=== PATIENT | female | born 1990 | race Caucasian/White ===

== ENCOUNTER → 2018-10-02 | Outpatient (CLI) | payer OTHER ==
--- NOTE | 2018-10-02 10:43 | Diagnostic Imaging Report ---
PROCEDURE: US OB SINGLE FETUS <14 WKS. TECHNIQUE: Multiple Real-time grayscale images were obtained over the gravid uterus in various projections. INDICATION: Uncertain dates. COMPARISON: There are no prior studies available for comparison. FINDINGS: There is a gestational sac within the uterus containing a single live fetus. heart motion was noted and a rate of 175 BPM was recorded. The crown/rump length suggests an estimated gestational age of 9 weeks 5 days plus/minus 1 week. There are no obvious abnormalities identified. The amniotic fluid volume is within normal limits. At this time, it is not certain where the placenta will develop. Both ovaries are identified. Each ovary does contain a few subcentimeter follicles. There is also a 1.1 x 0.5 cm cyst associated with the right ovary. There is no solid pelvic mass or free fluid collection evident. IMPRESSION: 1. There is a single live intrauterine of approximately 9 weeks 5 days gestation plus/minus 1 week. The EDC is 05/02/2019. 2. There are no obvious abnormalities identified. If a more sensitive evaluation of the anatomy is desired, then a followup exam in 10-12 weeks should be obtained. 3. There is no pelvic mass or free fluid collection. There is a 1.1 x 0.5 cm benign-appearing cyst associated with the right ovary. Dictated by: Dictated on workstation # [id number]
== END ==
LOC: RAD 09:32
PROVIDERS: ATTEND Family Medicine
DX: O34.81 Maternal care for other abnormalities of pelvic organs, first trimester (principal); N83.201 Unspecified ovarian cyst, right side; Z3A.09 9 weeks gestation of pregnancy
CPT/HCPCS: 76801

== ENCOUNTER → 2018-12-04 | Outpatient (CLI) | payer OTHER ==
--- NOTE | 2018-12-04 12:59 | Diagnostic Imaging Report ---
INDICATION: survey. TECHNIQUE: Multiple real-time grayscale images were obtained over the gravid uterus. COMPARISON: 10/02/2018. FINDINGS: There is a single live fetus in a cephalic presentation. heart rate was recorded at 155 beats per minute. The placenta is fundal. The amniotic fluid volume is normal. survey demonstrates kidneys, bladder, and stomach to be unremarkable. The brain is unremarkable. There is a four-chamber heart. There is a three-vessel cord with normal insertion. The spine is unremarkable. Biometrical measurements are as follows: Biparietal 4.41 cm, age 19 weeks 3 days. Head circumference 15.97 cm, age 18 weeks 6 days. Abdominal circumference 13.23 cm, age 18 weeks 6 days. Femur length 3.05 cm, age 19 weeks 4 days. Sonographic estimate age: 19 weeks 2 days. Sonographic estimated date of delivery: 04/28/2019. Estimated Weight: 271 gm (+/- 40 gm). LMP percentile: 66%. heart rate: 155 beats per minute. number: 1 of 1. IMPRESSION: Single live IUP at 19 weeks 2 days gestational age. This demonstrates normal interval growth when compared with prior exam from 10/02/2018. No complicating features are detected. Dictated by: Dictated on workstation # [id number]
== END ==
LOC: RAD 11:32
PROVIDERS: ATTEND Family Medicine
DX: Z36.89 Encounter for other specified antenatal screening (principal); Z3A.19 19 weeks gestation of pregnancy
CPT/HCPCS: 76805

== ENCOUNTER 2019-04-08 19:12 | Outpatient (CLI) | payer OTHER ==
[~2019-04-08] VITALS: Ht 154.9 cm; Wt 82.1 kg
--- NOTE | 2019-04-08 19:15 | NUR ---
BRIANNE KO presented to unit via wheelchair from ED, accompanied by , with c/o CONTRACTIONS. BRIANNE KO weighed, gowned, voided, and to bed. EFHM and TOCO applied, VS taken. BRIANNE KO oriented to bed controls, call light, TV, heat, and A/C controls.
[2019-04-08 19:35] VITALS: BP 135/97
[2019-04-08 19:54] LABS: BILIRUBIN,URINE NEGATIVE (NEGATIVE); CLARITY,URINE CLEAR; COLOR,URINE YELLOW; GLUCOSE, URINE (UA) NEGATIVE (NEGATIVE); KETONES,URINE NEGATIVE (NEGATIVE); LEUKOCYTE ESTERASE ,URINE 2+ (NEGATIVE); NITRITE,URINE NEGATIVE (NEGATIVE); PH,URINE 7 (5-9); PROTEIN,URINE NEGATIVE (NEGATIVE); UROBILINOGEN,URINE NORMAL (NORMAL)
[2019-04-08 20:10] LABS: BACTERIA,URINE FEW /HPF
[2019-04-08] MEDS ORDERED: HYDROcodone/APAP 10 MG/325 MG (LORTAB) TAB PO ONE ×2 (20:23→20:30)
[2019-04-08] MEDS ORDERED: hydrOXYzine (VISTARIL/ATARAX) 25 MG capsule/tablet ONE (21:05)
[2019-04-08] MEDS ORDERED: hydrOXYzine (VISTARIL/ATARAX) 25 MG capsule/tablet PO ONE (21:15)
--- NOTE | 2019-04-08 21:32 | NUR ---
Discharge instructions discussed with pt. Pt denies any questions. Signature sheet signed, placed on chart.
--- NOTE | 2019-04-08 21:45 | NUR ---
Pt to private vehicle with s.o. and this RN at side. Pt ambulating while holding wheelchair. Pt assisted into private vehicle. Encouraged to call if having any concerns. Pt verbalized understanding.
== END 2019-04-08 21:45 | disposition home or self-care (01) ==
LOC: WSo 19:12 → LDRP 19:12 → WSo 21:45
PROVIDERS: ATTEND Family Medicine
DX: O99.89 Other specified diseases and conditions complicating pregnancy, childbirth and the puerperium (principal); R07.81 Pleurodynia; Z3A.36 36 weeks gestation of pregnancy
CPT/HCPCS: 81000; 87088; 99213

== ENCOUNTER 2019-05-01 06:02 | Inpatient (IN) | payer OTHER ==
[~2019-05-01] VITALS: Ht 154.9 cm; Wt 84.9 kg
[2019-05-01] VITALS (65 sets, daily range): BP systolic 98–167; BP diastolic 51–90
--- NOTE | 2019-05-01 06:03 | NUR ---
BRIANNE KO presented to unit via ambulation from ED, accompanied by , with POC for INDUCTION. BRIANNE KO weighed, gowned, voided, and to bed. EFHM and TOCO applied, VS taken. BRIANNE KO oriented to bed controls, call light, TV, heat, and A/C controls.
[2019-05-01] MEDS ORDERED: MINERAL OIL CONCENTRATE 99.9% 15 ML UDC TOP PRN (06:15)
[2019-05-01] MEDS: D5 LR IV SOLUTION 1,000 ML IV SCH ×2 (06:33→14:29)
[2019-05-01 06:36] LABS: BASOPHILS % (AUTO) 0 % (0-10); EOSINOPHILS # (AUTO) 0.3 10^3/uL (0.0-0.3); EOSINOPHILS % (AUTO) 2 % (0-10); HEMATOCRIT 35 % (35-52); HEMOGLOBIN 11.6 G/DL (11.5-16.0); LYMPHOCYTES # (AUTO) 1.8 X 10^3 (1.0-4.0); LYMPHOCYTES % (AUTO) 17 % (12-44); MEAN CORPUSCULAR HEMOGLOBIN 29 PG (25-34); MEAN CORPUSCULAR HGB CONC 33 G/DL (32-36); MEAN CORPUSCULAR VOLUME 86 FL (80-99); MEAN PLATELET VOLUME 10.5 FL (7.4-10.4); MONOCYTES # (AUTO) 0.8 X 10^3 (0.0-1.0); MONOCYTES % (AUTO) 7 % (0-12); NEUTROPHILS # (AUTO) 7.9 X 10^3 (1.8-7.8); NEUTROPHILS % (AUTO) 74 % (42-75); PLATELET COUNT 264 10^3/uL (130-400); RED CELL DISTRIBUTION WIDTH 13.8 % (10.0-14.5); WHITE BLOOD COUNT 10.7 10^3/uL (4.3-11.0)
[2019-05-01 06:38] LABS: BILIRUBIN,URINE NEGATIVE (NEGATIVE); CLARITY,URINE CLEAR; COLOR,URINE YELLOW; GLUCOSE, URINE (UA) NEGATIVE (NEGATIVE); KETONES,URINE NEGATIVE (NEGATIVE); LEUKOCYTE ESTERASE ,URINE NEGATIVE (NEGATIVE); NITRITE,URINE NEGATIVE (NEGATIVE); PH,URINE 6.5 (5-9); PROTEIN,URINE NEGATIVE (NEGATIVE); UROBILINOGEN,URINE NORMAL (NORMAL)
[2019-05-01 06:50] LABS: BACTERIA,URINE TRACE /HPF
--- NOTE | 2019-05-01 07:09 | History & Physical-OB ---
OB - Chief Complaint & HPI Date/Time Date of Admission: Date of Admission: May 01, 2019 at 06:02 Date seen by a Provider: May 01, 2019 Time Seen by a Provider: 07:05 Chief Complaint/History OB-Reason for Admission/Chief: Induction of Labor Hx : 1 Hx Para: 0 Expected Date of Delivery: May 02, 2019 Gestational Age in Weeks: 39 Gestational Age in Days: 6 Admission Nurse Assessment Rev: Yes History of Labs GBS negative Allergies and Home Medications Allergies Coded Allergies: No Known Drug Allergies (Unverified , 04/08/19) Home Medications No Active Prescriptions or Reported Meds Patient Home Medication List Home Medication List Reviewed: Yes OB - History Hx of Present Care: Yes Ultrasounds: Normal mid trimester US Obstetrical Complications: None Medical Complications: None Patient Past Medical History no chronic medical problems Social History/Family History Alcohol Use: Denies Use Recreational Drug Use: No OB - Admission Exam Physical Exam Vitals: Vital Signs 05/01/19 06:33 Temp 97.0 Pulse 97 Resp 18 B/P (MAP) 123/74 (90) O2 Delivery Room Air HEENT: Moist Membranes Heart: Rhythm Normal Lungs: Clear Abdomen: Gravid Extremities: Normal Cervical Dilatation: 2cm Effacement: 50% Station: -3 Membranes: Intact Heart Rate: 140's Accelerations: Accelerations Present Short Term Variability: Present Sanitary Chemist Variability: Minimal (3-5) Contractions on Admission: 6-10 Minutes Apart Intensity: Mild Rahman Scoring Tool (Modified) Dilation (cm): 1-2cm (1) Effacement (%): 31-51% (1) Descent/Station: -3 (0) Cervix Consistency: Medium(1) Cervix Position: Middle/Mid-Position (1) Rahman Score: 4 Labs Laboratory Tests Test 05/01/19 06:10 05/01/19 06:20 Range/Units Urine Color YELLOW Urine Clarity CLEAR Urine pH 6.5 5-9 Urine Specific [place] 1.020 1.016-1.022 Urine Protein NEGATIVE NEGATIVE Urine Glucose (UA) NEGATIVE NEGATIVE Urine Ketones NEGATIVE NEGATIVE Urine Nitrite NEGATIVE NEGATIVE Urine Bilirubin NEGATIVE NEGATIVE Urine Urobilinogen NORMAL NORMAL MG/DL Urine Leukocyte Esterase NEGATIVE NEGATIVE Urine RBC (Auto) NEGATIVE NEGATIVE Urine RBC NONE /HPF Urine WBC NONE /HPF Urine Squamous Epithelial Cells 2-5 /HPF Urine Crystals NONE /LPF Urine Bacteria TRACE /HPF Urine Casts NONE /LPF Urine Mucus NEGATIVE /LPF Urine Culture Indicated NO White Blood Count 10.7 4.3-11.0 10^3/uL Red Blood Count 4.05 L 4.35-5.85 10^6/uL Hemoglobin 11.6 11.5-16.0 G/DL Hematocrit 35 35-52 % Mean Corpuscular Volume 86 80-99 FL Mean Corpuscular Hemoglobin 29 25-34 PG Mean Corpuscular Hemoglobin Concent 33 32-36 G/DL Red Cell Distribution Width 13.8 10.0-14.5 % Platelet Count 264 130-400 10^3/uL Mean Platelet Volume 10.5 H 7.4-10.4 FL Neutrophils (%) (Auto) 74 42-75 % Lymphocytes (%) (Auto) 17 12-44 % Monocytes (%) (Auto) 7 0-12 % Eosinophils (%) (Auto) 2 0-10 % Basophils (%) (Auto) 0 0-10 % Neutrophils # (Auto) 7.9 H 1.8-7.8 X 10^3 Lymphocytes # (Auto) 1.8 1.0-4.0 X 10^3 Monocytes # (Auto) 0.8 0.0-1.0 X 10^3 Eosinophils # (Auto) 0.3 0.0-0.3 10^3/uL Basophils # (Auto) 0.0 0.0-0.1 10^3/uL OB - Assessment/Plan/Diagnosis Assessment Assessment: induction of labor Admission Dx 1. IUP at term [id number] Admission Status: Inpatient Order (span 2 midnights) Reason for Inpatient Admission: Induction of labor Plan Plan: Expectant Management Induction Method: AROM Other Plan -epidural if so desired -pitocin as needed HOOD MONTANO MD May 01, 2019 07:09
[2019-05-01] MEDS ORDERED: OXYTOCIN/NORMAL SALINE 500 ML IV SCH (07:29)
--- NOTE | 2019-05-01 08:56 | NUR ---
Initial contact with a close family friend who was looking for the waiting room on women's floor. I escorted him there, where we met the pt's father in law. The two men said they have known each other for many years, and have a good friendship. I congratulated them on the anticipated , told them I would pray for Nataliia and the baby, and invited them to approach the nurse's desk if they had any questions. Both said they were content in the waiting area, and that they appreciated the hospitality shown to them.
[2019-05-01] MEDS ORDERED: SUFENTA 0.6MCG/ML BUPIVA 0.125 100 ML ONE (09:26)
--- NOTE | 2019-05-01 09:45 | NUR ---
Anesthesia notified of epidural request.
[2019-05-01] MEDS ORDERED: fentaNYL INJECTION 100 MCG/2 ML AMP ONE ×2 (10:23→20:13)
[2019-05-01] MEDS: EPIDURAL (SUFENTA 0.6MCG/ML BUPIVA 0.125%) 100 ML BAG EPI PRN ×2 (10:35→19:38)
[2019-05-01] MEDS ORDERED: LACTATED RINGERS 1,000 ML IV ONE (10:41)
[2019-05-01] MEDS ORDERED: ONDANSETRON 4 MG/2 ML (SDV) Z0FRAN IV PRN ×2 (10:45→21:45)
[2019-05-01] MEDS ORDERED: METOCLOPRAMIDE INJ 10 MG/2 ML (REGLAN) IV PRN (10:45)
[2019-05-01] MEDS ORDERED: diphenhydrAMINE 50 MG/ML INJ (BENADRYL) IV PRN ×2 (10:45→21:45)
[2019-05-01] MEDS ORDERED: NALOXONE 0.4 MG/ML 1 ML (NARCAN) VIAL IV PRN ×3 (10:45→21:45)
[2019-05-01] MEDS ORDERED: CATHETER FLUSH 10 ML SYR IV SCH ×2 (14:00→22:00)
[2019-05-01] MEDS ORDERED: MEPIVACAINE (CARBOCAINE) 2% 50 ML VIAL ONE (16:24)
[2019-05-01] MEDS ORDERED: TERBUTALINE INJ 1 MG/ML (BRETHINE) AMP ONE ×2 (19:56→20:27)
[2019-05-01] MEDS ORDERED: FAMOTIDINE 20MG/2ML IV (PEPCID) ONE (20:00)
[2019-05-01] MEDS ORDERED: CITRIC ACID/SOB CIT (BICITRA) 30 ML UDC ONE (20:00)
[2019-05-01] MEDS ORDERED: ceFAZolin 2 GM/50 ML NS 50 ML ONE (20:00)
--- NOTE | 2019-05-01 20:17 | Progress Note ---
Subjective Date Seen by a Provider: May 01, 2019 Time Seen by a Provider: 20:00 Subjective/Events-last exam Patient in labor with Pitocin at 26 mU/m. She has dilated to completion. She has been pushing for 3-1/2 hours. monitoring strip is very reactive. Objective Exam Vital Signs Date Time Temp Pulse Resp B/P (MAP) Pulse Ox O2 Delivery O2 Flow Rate FiO2 05/01/19 18:52 97 18 136/66 (89) Room Air 05/01/19 18:37 117 18 107/56 (73) Room Air 05/01/19 18:22 97 18 139/63 (88) Room Air 05/01/19 18:07 99.9 90 18 137/88 (104) Room Air 05/01/19 17:37 88 18 126/56 (79) Room Air 05/01/19 17:22 90 18 127/60 (82) Room Air 05/01/19 17:08 93 18 125/61 (82) Room Air 05/01/19 16:52 130 18 167/90 (115) Room Air 05/01/19 16:37 96 18 143/75 (97) Room Air 05/01/19 16:23 87 18 107/53 (71) Room Air 05/01/19 16:07 96 18 98/53 (68) Room Air 05/01/19 15:52 97.9 90 18 110/64 (79) Room Air 05/01/19 15:37 93 18 118/60 (79) Room Air 05/01/19 15:21 102 18 119/63 (81) Room Air 05/01/19 15:06 96 18 111/61 (78) Room Air 05/01/19 14:53 86 18 115/59 (77) Room Air 05/01/19 14:37 90 18 110/64 (79) Room Air 05/01/19 14:24 97.5 84 18 121/63 (82) Room Air 05/01/19 14:08 84 18 134/63 (86) Room Air 05/01/19 13:53 87 18 133/62 (85) Room Air 05/01/19 13:38 81 18 151/67 (95) Room Air 05/01/19 13:21 79 18 105/54 (71) Room Air 05/01/19 13:08 86 18 114/59 (77) Room Air 05/01/19 12:50 82 18 119/60 (79) Room Air 05/01/19 12:35 97 18 124/78 (93) 98 Room Air 05/01/19 12:20 82 18 115/56 (75) 98 Room Air 05/01/19 12:05 86 18 110/65 (80) 98 Room Air 05/01/19 11:50 97.1 83 18 116/67 (83) 98 Room Air 05/01/19 11:35 93 18 120/60 (80) 98 Room Air 05/01/19 11:20 100 18 114/67 (83) 98 Room Air 05/01/19 11:05 89 18 118/65 (82) 99 Room Air 05/01/19 11:01 93 18 116/65 (82) 98 Room Air 05/01/19 10:58 88 18 112/60 (77) Room Air 05/01/19 10:55 94 18 118/72 (87) 99 Room Air 05/01/19 10:52 88 18 120/57 (78) 99 Room Air 05/01/19 10:49 86 18 123/85 (98) 99 Room Air 05/01/19 10:46 93 18 119/62 (81) 99 Room Air 05/01/19 10:43 92 18 117/60 (79) 99 Room Air 05/01/19 10:40 95 18 118/63 (81) 99 Room Air 05/01/19 10:37 104 18 125/62 (83) 98 Room Air 05/01/19 10:34 109 18 122/60 (80) 98 Room Air 05/01/19 10:31 95 18 126/64 (84) 98 Room Air 05/01/19 10:26 97.2 106 18 125/64 (84) 99 Room Air 05/01/19 10:23 105 18 124/79 (94) 99 Room Air 05/01/19 10:16 90 18 127/73 (91) 100 Room Air 05/01/19 10:13 88 18 130/71 (90) 100 Room Air 05/01/19 09:55 78 18 124/83 (97) Room Air 05/01/19 09:40 95 18 136/86 (103) Room Air 05/01/19 09:25 81 18 128/78 (95) Room Air 05/01/19 09:10 88 18 133/71 (91) Room Air 05/01/19 08:55 82 18 131/77 (95) Room Air 05/01/19 08:40 81 18 118/72 (87) Room Air 05/01/19 08:25 90 18 121/65 (83) Room Air 05/01/19 08:10 83 18 109/72 (84) Room Air 05/01/19 07:55 88 18 116/78 (91) Room Air 05/01/19 07:30 96.4 92 18 131/81 (98) Room Air 05/01/19 06:33 97.0 97 18 123/74 (90) Room Air Capillary Refill : General Appearance: Anxious Other comments Cervix completely dilated. Position of fetuses head appears to be right occiput posterior. Results Lab Laboratory Tests 05/01/19 06:10: Urine Color YELLOW, Urine Clarity CLEAR, Urine pH 6.5, Urine Specific [place] 1.020, Urine Protein NEGATIVE, Urine Glucose (UA) NEGATIVE, Urine Ketones NEGATIVE, Urine Nitrite NEGATIVE, Urine Bilirubin NEGATIVE, Urine Urobilinogen NORMAL, Urine Leukocyte Esterase NEGATIVE, Urine RBC (Auto) NEGATIVE, Urine RBC NONE, Urine WBC NONE, Urine Squamous Epithelial Cells 2-5, Urine Crystals NONE, Urine Bacteria TRACE, Urine Casts NONE, Urine Mucus NEGATIVE, Urine Culture Indicated NO 05/01/19 06:20: White Blood Count 10.7, Red Blood Count 4.05L, Hemoglobin 11.6, Hematocrit 35, Mean Corpuscular Volume 86, Mean Corpuscular Hemoglobin 29, Mean Corpuscular Hemoglobin Concent 33, Red Cell Distribution Width 13.8, Platelet Count 264, Mean Platelet Volume 10.5H, Neutrophils (%) (Auto) 74, Lymphocytes (%) (Auto) 17, Monocytes (%) (Auto) 7, Eosinophils (%) (Auto) 2, Basophils (%) (Auto) 0, Neutrophils # (Auto) 7.9H, Lymphocytes # (Auto) 1.8, Monocytes # (Auto) 0.8, Eosinophils # (Auto) 0.3, Basophils # (Auto) 0.0 Assessment/Plan Assessment/Plan Assess & Plan/Chief Complaint 1. Intrauterine at 39 weeks 5 days gestation 2. Cephalopelvic disproportion -Mother was given 3 hours of pushing. Various positions were tried to bring head further down into the birthing canal. monitoring remained reactive throughout the entire course of pushing. There was one attempt with vacuum-assisted suction. The vacuum-assisted failed and at this point surgery crew was notified and Dr. Mcnulty notified. Patient and both agree to proceed with section. Clinical Quality Measures DVT/VTE Risk/Contraindication: Risk Factor Score Per Nursin RFS Level Per Nursing on Admit: 1=Low/No VTE PPX HOOD MONTANO MD May 01, 2019 20:17
[2019-05-01] MEDS ORDERED: MEASLES,MUMPS,RUBELLA 1 EA INJ SC SCH (20:45)
[2019-05-01] MEDS ORDERED: ONDANSETRON 4 MG/2 ML (SDV) Z0FRAN IVP PRN (20:45)
[2019-05-01] MEDS ORDERED: TETANUS,DIPTH,PERTUSS P/F (BOOSTRIX) 0.5 ML VIAL IM SCH (20:45)
--- NOTE | 2019-05-01 20:47 | Discharge Inst-Women's Service ---
Discharge Inst-Women's Serv Depart Medication/Instructions New, Converted or Re-Newed RX: RX on Chart Final Diagnosis POD 2 PLTCS Acute blood loss anemia Problems Reviewed?: Yes Consults/Follow Up Additional Follow Up: Yes Activity Activity: Activity as Tolerated Driving Instructions: No Driving for 1 Week NO SMOKING: NO SMOKING Nothing Inside Vagina: No Douching, No [place], No Tampons Diet Discharge Diet: No Restrictions Symptoms to Report to : Bleeding Excessive, Pain Increased, Fever Over 101 Degrees F, Vaginal Bleeding Increase, Questions/Concerns For Any Problems or Questions: Contact Your Physician Skin/Wound Care Infection Signs and Symptoms: Increased Redness, Foul Odor of Wound, Increased Drainage, Skin Itchy or Has a Rash, Increased Swelling, Temperature Above 101 F Operative Area Clean and Dry: Keep Incision Clean/Dry Stitches/Kaya/Dermabond: Dermabond, Care of Stitches Bathing Instructions: HEAVENLY Gonzalez DO May 01, 2019 20:47
[2019-05-01] MEDS ORDERED: HYDR-4226 PO (20:48)
[2019-05-01] MEDS ORDERED: DOCU-143 PO (20:48)
[2019-05-01] MEDS ORDERED: IBUP-844 PO (20:48)
[2019-05-01] MEDS ORDERED: BUPIVACAINE 0.5% 30 ML (SENSORCAINE) VIAL ONE (21:15)
[2019-05-01] MEDS ORDERED: LIDOCAINE PF 2% 5 ML (XYLOCAINE) VIAL ONE ×2 (21:15→21:19)
[2019-05-01] MEDS ORDERED: ONDANSETRON 4 MG/2 ML (SDV) Z0FRAN ONE (21:15)
[2019-05-01] MEDS ORDERED: PHENYLEPHRINE 100 MCG/ML 10 ML (ANESTHESIA) SYR ONE (21:17)
[2019-05-01] MEDS: OXYTOCIN/NORMAL SALINE 500 ML IV SCH (23:10)
--- NOTE | 2019-05-01 23:10 | NUR ---
Pt transferred to room 307 per bed accompanied by this rn, so, and . Pt oriented to room, ice water given. Pitocin converted to pump tubing. SCD's on, pump running. Ice pack given for perineum. call light in reach. food offered. will monitor closely.
--- NOTE | 2019-05-01 23:15 | NUR ---
Report given to jyoti schaeffer rn.
[2019-05-01] MEDS: KETOROLAC 30 MG/ML VIAL IV SCH (23:23)
[2019-05-02] MEDS ORDERED: METOCLOPRAMIDE INJ 10 MG/2 ML (REGLAN) IV ONE
[2019-05-02] MEDS ORDERED: TERBUTALINE INJ 1 MG/ML (BRETHINE) AMP SC ONE ×2
[2019-05-02] MEDS ORDERED: FAMOTIDINE 20MG/2ML IV (PEPCID) IV ONE
[2019-05-02] MEDS ORDERED: CITRIC ACID/SOB CIT (BICITRA) 30 ML UDC PO ONE
--- NOTE | 2019-05-02 00:30 | NUR ---
Pt refused IS regimen.
--- NOTE | 2019-05-02 04:01 | OPERATIVE REPORT ---
DATE OF SERVICE: 05/01/2019 PREOPERATIVE DIAGNOSES: 1. A 28-year-old G1, P0 at 39 weeks and 6 days gestation. 2. Cephalopelvic disproportion. 3. Persistent tachycardia. POSTOPERATIVE DIAGNOSES: 1. A 28-year-old G1, P0 at 39 weeks and 6 days gestation. 2. Cephalopelvic disproportion. 3. Persistent tachycardia. 4. Persistent occiput posterior. SURGEON: Vasu Juarez D.O. TOW DRIVER: Vignesh Eric M.D. ANESTHESIA: Spinal. ESTIMATED BLOOD LOSS: 300 mL. URINE OUTPUT: 75 mL, slightly blood tinged at the end of the procedure. FLUIDS: 1650 mL of lactated Ringer's solution. FINDINGS: A live male infant weighing 7 pounds 9 ounces, Apgars of 7 and 8. Grossly normal appearing uterus. Bilateral fallopian tubes and ovaries. SPECIMEN SENT: Placenta. INDICATIONS FOR PROCEDURE: This 28-year-old female was a patient that was admitted for induction by Dr. Eric yesterday morning for Pitocin and artificial rupture of membranes. She progressed to complete at approximately 3 to 4 o'clock this afternoon and she pushed until approximately 7: 45 to 8:00 without any progression in station. Dr. Eric did report to me that he did attempt vacuum extraction, was unsuccessful and requested my services to perform primary for cephalopelvic disproportion. Once I presented bedside, I reviewed with the patient the risk of , which she was well familiar with and have been counseled with Dr. Eric. Consent was obtained in the preoperative area and the patient was then taken to the operating room. OPERATIVE REPORT IN DETAIL: Once in the operating room, spinal analgesia was used to achieve adequate anesthesia as her epidural was not working very well. She was placed in supine position with a leftward tilt, prepped and draped in normal sterile fashion. A timeout was performed. A Pfannenstiel skin incision made with a knife and carried down until the underlying fascia using Bovie cautery. Fascial incision extended laterally using Bovie cautery. Superior aspect of fascial incision was then grasped with Guadalupe clamps, tented up and dissected off the underlying rectus muscles. The inferior aspect of the fascial incision was then grasped with Guadalupe clamps, tented up and dissected off the underlying rectus muscles. Rectus muscles were then dissected down the midline using Valadez scissors, which exposed the peritoneum, which I then entered bluntly and extended using blunt traction. I then placed an Matt ring retractor in the peritoneal incision, which offers excellent lateral sidewall retraction. I identified the lower uterine segment, found to be thinned out and make a low transverse incision to the vesicouterine peritoneum and bluntly dissected off the lower uterine segment. I proceeded with myotomy until membranes were visualized, at which point I extend the uterine incision laterally and superiorly using bandage scissors. Iatrogenic rupture of membranes was performed in the process of doing this. The infant was found in the posterior presentation. With gentle fundal pressure, the 's head is elevated up out of the pelvis into the incision where it is delivered through the incision. The nares and oropharynx were bulb suctioned. A nuchal cord was reduced x1. Anterior and posterior shoulders were delivered. was then brought to the operative field where the cord was doubly clamped and cut and was handed off to Dr. Eric for further attendance. Cord blood was collected, 3-vessel cord with intact placenta was delivered spontaneously thereafter. IV Pitocin was initiated to facilitate uterine contraction. Uterine fundus became firmer with bimanual massage. The uterus was then exteriorized and cleared of endometrial clots and debris. I then proceeded with closing the uterine incision using 0 Vicryl suture in running locked fashion. Second layer of imbricating 0 Monocryl was placed. Excellent hemostasis was noted after doing this. I then placed the uterus back in the pelvis and copiously irrigated the pelvis using normal saline. There was no active bleeding noted from any of my dissection planes. I placed Interceed antiadhesive over my low transverse incision and proceeded with closing the peritoneum after removing the Matt ring retractor. The peritoneum was reapproximated using 3-0 Vicryl suture in running fashion. The rectus muscle reapproximated using 3-0 Vicryl suture in interrupted fashion. The fascia was reapproximated with 0 Vicryl suture in running fashion. The subcutaneous tissue was reapproximated using 3-0 plain in interrupted subcutaneous stitch and skin reapproximated using 4-0 Monocryl running subcuticular. Dermabond was applied to incision. A sterile dressing with adhesive white tape. The patient tolerated the procedure well and was taken to recovery area in stable condition. Lap and sponge counts were correct at the end of the procedure. Instrument counts correct as well. Two grams of Ancef were given preoperatively for infection prophylaxis. Job ID: [id number] DocumentID: [id number] Dictated Date: 05/01/2019 21:46:19 Terrazzo Polisher Helper Date: 05/02/2019 04:01:12 Dictated By: VASU JUAREZ DO
[2019-05-02 04:08] VITALS: BP 93/45
[2019-05-02] MEDS: KETOROLAC 30 MG/ML VIAL IV SCH (05:37)
[2019-05-02] MEDS: METOCLOPRAMIDE 10 MG (REGLAN) TAB PO SCH ×4 (05:37→20:32)
--- NOTE | 2019-05-02 05:46 | NUR ---
Pt up standby assist to bathroom, first void postop, 500ml urine blood mix noted in hat. i/o updated. see int. pt assisted back to bed standby, calf scds reapplied bilat, on and pumping, pt denies needs. Will cont to monitor.
[2019-05-02 06:18] LABS: BASOPHILS % (AUTO) 0 % (0-10); EOSINOPHILS % (AUTO) 0 % (0-10); HEMATOCRIT 29 % (35-52); HEMOGLOBIN 9.5 G/DL (11.5-16.0); LYMPHOCYTES # (AUTO) 1.8 X 10^3 (1.0-4.0); LYMPHOCYTES % (AUTO) 9 % (12-44); MEAN CORPUSCULAR HEMOGLOBIN 29 PG (25-34); MEAN CORPUSCULAR HGB CONC 33 G/DL (32-36); MEAN CORPUSCULAR VOLUME 88 FL (80-99); MEAN PLATELET VOLUME 10.6 FL (7.4-10.4); MONOCYTES # (AUTO) 2.1 X 10^3 (0.0-1.0); MONOCYTES % (AUTO) 11 % (0-12); NEUTROPHILS # (AUTO) 15.3 X 10^3 (1.8-7.8); NEUTROPHILS % (AUTO) 79 % (42-75); PLATELET COUNT 226 10^3/uL (130-400); RED CELL DISTRIBUTION WIDTH 13.9 % (10.0-14.5); WHITE BLOOD COUNT 19.3 10^3/uL (4.3-11.0)
--- NOTE | 2019-05-02 07:15 | NUR ---
DR. MONTANO HERE TO SEE PT.
--- NOTE | 2019-05-02 07:30 | NUR ---
DR. JUAREZ HERE TO SEE PT.
[2019-05-02 08:00] VITALS: BP 117/72
--- NOTE | 2019-05-02 08:00 | NUR ---
A.M. ASSESSMENT COMPLETED. VSS. MOVING WELL.
[2019-05-02] MEDS: DOCUSATE SODIUM 100 MG (COLACE) CAP PO SCH ×2 (08:14→21:05)
--- NOTE | 2019-05-02 08:30 | NUR ---
ASSISTED PT WITH INFANT. GOOD INTERACTION NOTED.
--- NOTE | 2019-05-02 08:59 | Postpartum Progress Note ---
Note Note Day # 1 Subjective: Patient is without complaints. Ambulating, voiding. Tolerating a regular diet without nausea or vomiting. Normal lochia. Pain is well controlled with oral pain medications. Objective: Physical Exam: General - Alert and oriented, no apparent distress Abdomen - Soft, appropriately tender to palpation, non-distended, fundus firm at umbilicus Extremities - no edema, negative Teddy's bilaterally Incision- c/d/i Assessment: POD 1 PLTCS Acute blood loss anemia Plan: Routine care. Encourage breast feeding. Encourage ambulation. Ferrous sulfate supplementation. Plan for discharge tomorrow Vitals - Labs Vital Signs - I&O Vital Signs Date Time Temp Pulse Resp B/P (MAP) Pulse Ox O2 Delivery O2 Flow Rate FiO2 05/02/19 04:08 98.3 106 20 93/45 (61) 97 Room Air 05/02/19 00:40 Room Air 05/01/19 23:23 124 20 119/63 (81) 96 Room Air 05/01/19 22:45 Room Air 05/01/19 22:45 98.7 18 97 Room Air 05/01/19 22:35 98.8 18 99 Room Air 05/01/19 22:35 Room Air 05/01/19 22:20 Room Air 05/01/19 22:20 98.3 18 99 Room Air 05/01/19 22:05 16 100 Room Air 05/01/19 22:05 Room Air 05/01/19 21:50 Room Air 05/01/19 21:50 98.6 16 100 Room Air 05/01/19 20:30 146 100 Room Air 05/01/19 20:14 148 20 128/86 (100) Room Air 05/01/19 19:21 122 20 146/66 (92) Room Air 05/01/19 19:07 100 20 149/64 (92) Room Air 05/01/19 18:52 97 18 136/66 (89) Room Air 05/01/19 18:37 117 18 107/56 (73) Room Air 05/01/19 18:22 97 18 139/63 (88) Room Air 05/01/19 18:07 99.9 90 18 137/88 (104) Room Air 05/01/19 17:37 88 18 126/56 (79) Room Air 05/01/19 17:22 90 18 127/60 (82) Room Air 05/01/19 17:08 93 18 125/61 (82) Room Air 05/01/19 16:52 130 18 167/90 (115) Room Air 05/01/19 16:37 96 18 143/75 (97) Room Air 05/01/19 16:23 87 18 107/53 (71) Room Air 05/01/19 16:07 96 18 98/53 (68) Room Air 05/01/19 15:52 97.9 90 18 110/64 (79) Room Air 05/01/19 15:37 93 18 118/60 (79) Room Air 05/01/19 15:21 102 18 119/63 (81) Room Air 05/01/19 15:06 96 18 111/61 (78) Room Air 05/01/19 14:53 86 18 115/59 (77) Room Air 05/01/19 14:37 90 18 110/64 (79) Room Air 05/01/19 14:24 97.5 84 18 121/63 (82) Room Air 05/01/19 14:08 84 18 134/63 (86) Room Air 05/01/19 13:53 87 18 133/62 (85) Room Air 05/01/19 13:38 81 18 151/67 (95) Room Air 05/01/19 13:21 79 18 105/54 (71) Room Air 05/01/19 13:08 86 18 114/59 (77) Room Air 05/01/19 12:50 82 18 119/60 (79) Room Air 05/01/19 12:35 97 18 124/78 (93) 98 Room Air 05/01/19 12:20 82 18 115/56 (75) 98 Room Air 05/01/19 12:05 86 18 110/65 (80) 98 Room Air 05/01/19 11:50 97.1 83 18 116/67 (83) 98 Room Air 05/01/19 11:35 93 18 120/60 (80) 98 Room Air 05/01/19 11:20 100 18 114/67 (83) 98 Room Air 05/01/19 11:05 89 18 118/65 (82) 99 Room Air 05/01/19 11:01 93 18 116/65 (82) 98 Room Air 05/01/19 10:58 88 18 112/60 (77) Room Air 05/01/19 10:55 94 18 118/72 (87) 99 Room Air 05/01/19 10:52 88 18 120/57 (78) 99 Room Air 05/01/19 10:49 86 18 123/85 (98) 99 Room Air 05/01/19 10:46 93 18 119/62 (81) 99 Room Air 05/01/19 10:43 92 18 117/60 (79) 99 Room Air 05/01/19 10:40 95 18 118/63 (81) 99 Room Air 05/01/19 10:37 104 18 125/62 (83) 98 Room Air 05/01/19 10:34 109 18 122/60 (80) 98 Room Air 05/01/19 10:31 95 18 126/64 (84) 98 Room Air 05/01/19 10:26 97.2 106 18 125/64 (84) 99 Room Air 05/01/19 10:23 105 18 124/79 (94) 99 Room Air 05/01/19 10:16 90 18 127/73 (91) 100 Room Air 05/01/19 10:13 88 18 130/71 (90) 100 Room Air 05/01/19 09:55 78 18 124/83 (97) Room Air 05/01/19 09:40 95 18 136/86 (103) Room Air 05/01/19 09:25 81 18 128/78 (95) Room Air 05/01/19 09:10 88 18 133/71 (91) Room Air I & O 05/02/19 07:00 Intake Total 3650 ml Output Total 895 ml Balance 2755 ml Labs Laboratory Tests 05/02/19 06:05: White Blood Count 19.3H, Red Blood Count 3.29L, Hemoglobin 9.5L, Hematocrit 29L, Mean Corpuscular Volume 88, Mean Corpuscular Hemoglobin 29, Mean Corpuscular Hemoglobin Concent 33, Red Cell Distribution Width 13.9, Platelet Count 226, Mean Platelet Volume 10.6H, Neutrophils (%) (Auto) 79H, Lymphocytes (%) (Auto) 9L, Monocytes (%) (Auto) 11, Eosinophils (%) (Auto) 0, Basophils (%) (Auto) 0, Neutrophils # (Auto) 15.3H, Lymphocytes # (Auto) 1.8, Monocytes # (Auto) 2.1H, Eosinophils # (Auto) 0.0, Basophils # (Auto) 0.0 HEAVENLY JUAREZ DO May 02, 2019 08:59
--- NOTE | 2019-05-02 09:00 | NUR ---
PT UP TO SHOWER AND HAD BLOODY DRAINAGE DRIPPING FORM AREA ON LEFT SIDE OF INCISION. APPEARS TO BE DERMABOND NOT INTACT AT THAT AREA. STERI STRIPS APPLIED.
--- NOTE | 2019-05-02 10:00 | NUR ---
IN TO ASSIST PT NEEDED WITH .
--- NOTE | 2019-05-02 10:53 | Anesthesia-Regional Post-Op ---
Regional Patient Condition Mental Status: Alert, Oriented x3 Circulation: Same as Pre-Op Headache: Absent Sensation: Full Recovery Motor Block: Absent Post Op Complications Complications None Follow Up Care/Instructions Patient Instructions None needed. Anesthesia/Patient Condition Patient is doing well, no complaints, stable vital signs, no apparent adverse anesthesia problems. No complications reported per nursing. CAITLIN RASHID CRNA May 02, 2019 10:53
[2019-05-02 12:00] VITALS: BP 124/58
--- NOTE | 2019-05-02 12:00 | NUR ---
VOIDING WITHOUT PROBLEMS. STATES STARTING TO HURT A LITTLE.
[2019-05-02] MEDS: IBUPROFEN 600 MG (MOTRIN) TAB PO SCH ×3 (12:08→20:33)
[2019-05-02] MEDS: HYDROcodone/APAP 5 MG/325 MG (LORTAB) TAB PO PRN ×2 (12:18→17:33)
--- NOTE | 2019-05-02 12:18 | NUR ---
LORTAB 2 TABS P.O. FOR C/O ABD PAIN.
--- NOTE | 2019-05-02 12:45 | NUR ---
AMBULATING IN THE [place]. MOVING WELL. DOING WELL.
--- NOTE | 2019-05-02 14:30 | NUR ---
INFANT. DOING SO MUCH BETTER THAN THIS A.M. MOM'S LINENS CHANGED R/T VOIDING ON BED. SPOUSE RESTING ON COUCH.
[2019-05-02 16:00] VITALS: BP 119/59
--- NOTE | 2019-05-02 16:00 | NUR ---
VSS. VISITORS AT BEDSIDE. CONTINUES TO DO WELL.
--- NOTE | 2019-05-02 16:10 | NUR ---
REPORT TO JL REYNOLDS RN.
[2019-05-02 17:32] VITALS: BP 121/66
--- NOTE | 2019-05-02 19:23 | NUR ---
report given to next shift.
[2019-05-02] MEDS: OXYTOCIN/NORMAL SALINE 500 ML IV SCH (20:32)
[2019-05-03 00:56] VITALS: BP 115/74
[2019-05-03] MEDS: METOCLOPRAMIDE 10 MG (REGLAN) TAB PO SCH ×3 (00:56→11:53)
[2019-05-03] MEDS: IBUPROFEN 600 MG (MOTRIN) TAB PO SCH ×3 (00:56→11:53)
[2019-05-03] MEDS: HYDROcodone/APAP 5 MG/325 MG (LORTAB) TAB PO PRN ×2 (00:57→06:44)
[2019-05-03 06:44] VITALS: BP 127/83
--- NOTE | 2019-05-03 09:45 | NUR ---
initial shift assessment completed, see interventions for further. POC reviewed with pt and , states understanding.
--- NOTE | 2019-05-03 11:50 | Postpartum Progress Note ---
Note Note Day # 2 Subjective: Patient is without complaints. Ambulating, voiding. Tolerating a regular diet without nausea or vomiting. Normal lochia. Pain is well controlled with oral pain medications. Objective: Physical Exam: General - Alert and oriented, no apparent distress Abdomen - Soft, appropriately tender to palpation, non-distended, fundus firm at umbilicus Extremities - no edema, negative Teddy's bilaterally Incision: c/d/o Assessment: POD 2 PLTCS Acute blood loss anemia Plan: Routine care. Encourage breast feeding. Encourage ambulation. Ferrous sulfate supplementation. Plan for discharge today Vitals - Labs Vital Signs - I&O Vital Signs Date Time Temp Pulse Resp B/P (MAP) Pulse Ox O2 Delivery O2 Flow Rate FiO2 05/03/19 06:44 97.6 98 18 127/83 (98) 98 Room Air 05/03/19 00:56 97.6 92 18 115/74 (88) 98 Room Air 05/02/19 17:32 98.4 111 18 121/66 (84) 97 Room Air 05/02/19 16:00 98.0 97 18 119/59 (79) 100 Room Air 05/02/19 12:00 98.9 105 18 124/58 (80) 96 Room Air I & O 05/03/19 07:00 Intake Total 2300 ml Output Total 3150 ml Balance -850 ml HEAVENLY JUAREZ DO May 03, 2019 11:50
[2019-05-03 11:52] VITALS: BP 130/67
[2019-05-03] MEDS: DOCUSATE SODIUM 100 MG (COLACE) CAP PO SCH (11:53)
--- NOTE | 2019-05-03 11:54 | NUR ---
[place] Ty here. dismissal orders received.
--- NOTE | 2019-05-03 12:26 | NUR ---
dismissal instructions given, verbalizes understanding. reviewed follow up appointment with . instructed pt to schedule 6 week PP appointment with . reviewed dismissal medications and administration schedule. signature page signed, placed on chart.
--- NOTE | 2019-05-03 12:40 | NUR ---
pt ambulated to private vehicle with this RN, and family members @ side. secured in rear facing car seat. pt stable upon dismissal, no sx's of distress noted.
--- NOTE | 2019-05-06 09:42 | Physician Query-Final Dx ---
DIO GUTIERREZ 05/06/19 0941: Final Diagnosis Give Final Diagnosis Please give Final Diagnosis HEAVENLY JUAREZ DO 05/06/19 1636: Final Diagnosis Give Final Diagnosis POD 2 PLTCS DIO GUTIERREZ May 06, 2019 09:41 HEAVENLY JUAREZ DO May 06, 2019 16:36
== END 2019-05-03 12:40 | disposition home or self-care (01) | DRG 787 ==
LOC: LDRP 06:02
PROVIDERS: ADMIT Family Medicine; ATTEND Family Medicine
PROC: 10907ZC Drainage of Amniotic Fluid, Therapeutic from Products of Conception, Via Natural or Artificial Opening (ICD-10-PCS; 2019-05-01)
PROC: 10D00Z1 Extraction of Products of Conception, Low, Open Approach (ICD-10-PCS; principal; 2019-05-01 20:42)
DX: O33.9 Maternal care for disproportion, unspecified (principal); O64.0XX0 Obstructed labor due to incomplete rotation of fetal head, not applicable or unspecified; O76 Abnormality in fetal heart rate and rhythm complicating labor and delivery; O90.81 Anemia of the puerperium; D62 Acute posthemorrhagic anemia; Z37.0 Single live birth; Z3A.39 39 weeks gestation of pregnancy; Z23 Encounter for immunization
CPT/HCPCS: 36415; 81000; 85025; 86850; 86900; 86901; 90715

== ENCOUNTER → 2020-03-17 | Outpatient (CLI) | payer OTHER ==
[~2020-03-17] MED LIST: DOCU-143 PO; HYDR-4226 PO; IBUP-844 PO
--- NOTE | 2020-03-17 14:10 | Diagnostic Imaging Report ---
INDICATION: Undergoing anatomical survey during normal . TECHNIQUE: Multiple real-time grayscale images were obtained over the gravid uterus. COMPARISON: None. FINDINGS: There is presence of a single viable intrauterine currently in a breech presentation. Placenta is anterior without previa. Normal amount of amniotic fluid appears to be present. Visualized anatomical structures including the kidneys, bladder, stomach, intracranial structures, four-chamber heart, three-vessel cord and cord insertion site as well as spine are unremarkable. Maxillofacial profile appearing unremarkable. Cervical length approximately 5 cm and unremarkable. Adnexa not visualized. Biometrical measurements are as follows: Biparietal 4.66 cm, age 20 weeks 1 days. Head circumference 18.02 cm, age 20 weeks 4 days. Abdominal circumference 14.2 cm, age 19 weeks 4 days. Femur length 3.64 cm, age 21 weeks 4 days. Sonographic estimate age: 20 weeks 4 days. Sonographic estimated date of delivery: 07/31/20. Estimated Weight: 356 gm (+/- 52 gm). LMP percentile: 56%. heart rate: 153 beats per minute. number: 1 of 1. IMPRESSION: 1. Single viable intrauterine currently in a breech presentation. Current sonographic estimated age 20 weeks 4 days with estimated date of delivery July 31, 2020. No abnormality is noted at this time. Dictated by: Dictated on workstation # [id number]
== END ==
LOC: RAD 10:00
PROVIDERS: ATTEND Obstetrics & Gynecology
DX: Z36.9 Encounter for antenatal screening, unspecified (principal); Z3A.20 20 weeks gestation of pregnancy
CPT/HCPCS: 76805

== ENCOUNTER 2020-07-23 05:36 | Outpatient (RCR) | payer OTHER ==
[~2020-07-23] VITALS: Ht 154 cm; Wt 80.0 kg
[~2020-07-23 05:36] MED LIST changes: +PREN1TAB79 PO
[2020-07-26] MEDS ORDERED: ACHD5005 PO (07:27)
[2020-07-26] MEDS ORDERED: DCS100C PO (07:27)
[2020-07-26] MEDS ORDERED: IBUP-844 PO (07:27)
== END 2020-07-23 12:54 | disposition home or self-care (01) ==
LOC: PREOP 05:36
PROVIDERS: ATTEND Obstetrics & Gynecology
DX: Z01.818 Encounter for other preprocedural examination (principal); Z20.828 Contact with and (suspected) exposure to other viral communicable diseases
CPT/HCPCS: 87635

== ENCOUNTER 2020-07-26 06:06 | Inpatient (IN) | payer OTHER ==
[2020-07-26] VITALS (10 sets, daily range): BP systolic 105–127; BP diastolic 56–88
[~2020-07-26] VITALS: Ht 154 cm; Wt 80.0 kg
[~2020-07-26 06:06] MED LIST changes: +CITRIC ACID/SOB CIT (BICITRA) 30 ML UDC ONE; +FAMOTIDINE 20MG/2ML IV (PEPCID) ONE; +METOCLOPRAMIDE INJ 10 MG/2 ML (REGLAN) ONE; +WATER (STERILE) FOR INJECTION 20 ML ONE; +ceFAZolin INJECTION 1,000 MG ONE
--- NOTE | 2020-07-26 06:15 | NUR ---
BRIANNE KO presented to unit via from ED, accompanied by S/O, with c/o REPEAT 39WKS . BRIANNE KO weighed, gowned, voided, and to bed. EFHM and TOCO applied, VS taken. BRIANNE KO oriented to bed controls, call light, TV, heat, and A/C controls.
[2020-07-26] MEDS ORDERED: ceFAZolin INJECTION 1,000 MG in WATER (STERILE) FOR INJECTION 10 ML IV ONE (06:30)
[2020-07-26] MEDS ORDERED: LACTATED RINGERS 1,000 ML IV PRN (06:31)
[2020-07-26] MEDS ORDERED: METOCLOPRAMIDE INJ 10 MG/2 ML (REGLAN) IV ONE (06:45)
[2020-07-26] MEDS ORDERED: CITRIC ACID/SOB CIT (BICITRA) 30 ML UDC PO ONE (06:45)
[2020-07-26] MEDS ORDERED: FAMOTIDINE 20MG/2ML IV (PEPCID) IV ONE (06:45)
[2020-07-26 06:52] LABS: BASOPHILS % (AUTO) 0 % (0-10); EOSINOPHILS # (AUTO) 0.1 10^3/uL (0.0-0.3); EOSINOPHILS % (AUTO) 1 % (0-10); HEMATOCRIT 36 % (35-52); HEMOGLOBIN 11.8 g/dL (11.5-16.0); LYMPHOCYTES # (AUTO) 1.4 10^3/uL (1.0-4.0); LYMPHOCYTES % (AUTO) 14 % (12-44); MEAN CORPUSCULAR HEMOGLOBIN 28 pg (25-34); MEAN CORPUSCULAR HGB CONC 33 g/dL (32-36); MEAN CORPUSCULAR VOLUME 85 fL (80-99); MEAN PLATELET VOLUME 10.2 fL (9.0-12.2); MONOCYTES # (AUTO) 0.7 10^3/uL (0.0-1.0); MONOCYTES % (AUTO) 7 % (0-12); NEUTROPHILS # (AUTO) 7.8 10^3/uL (1.8-7.8); NEUTROPHILS % (AUTO) 78 % (42-75); PLATELET COUNT 215 10^3/uL (130-400); WHITE BLOOD COUNT 10.1 10^3/uL (4.3-11.0)
[2020-07-26] MEDS ORDERED: fentaNYL INJECTION 100 MCG/2 ML AMP ONE (06:55)
[2020-07-26] MEDS ORDERED: OXYTOCIN PRE-MIX DRIP 1,000 ML IV ONE (06:55)
[2020-07-26] MEDS ORDERED: ROPIVACAINE 5MG/ML 30ML VIAL ONE (07:02)
[2020-07-26] MEDS ORDERED: OXYTOCIN PRE-MIX DRIP 500 ML IV SCH (07:11)
--- NOTE | 2020-07-26 07:11 | History & Physical-OB ---
OB - Chief Complaint & HPI Date/Time Date of Admission: Date of Admission: Jul 26, 2020 at 06:06 Date seen by a Provider: Jul 26, 2020 Time Seen by a Provider: 07:05 Chief Complaint/History OB-Reason for Admission/Chief: Section Hx : 2 Hx Para: 1 Expected Date of Delivery: Aug 02, 2020 Gestational Age in Weeks: 39 Indication for : desires repeat Admission Nurse Assessment Rev: Yes Allergies and Home Medications Allergies Coded Allergies: No Known Drug Allergies (Unverified , 07/20/20) Home Medications Vit W-Ca,Fe,FA(<1 mg) 1 Each Tablet, 1 EACH PO DAILY, (Reported) Patient Home Medication List Home Medication List Reviewed: Yes OB - History Hx of Present Care: Yes Ultrasounds: Normal mid trimester US Obstetrical Complications: None Medical Complications: None Delivery History Adverse Rxn to Tranfusion: No (N/A) Patient Past Medical History no chronic medical problems Social History/Family History HIV/AIDS: No Recent Infectious Disease Expo: No Sexually Transmitted Disease: No Alcohol Use: Denies Use Recreational Drug Use: No Immunizations Date of Influenza Vaccine: Jul 12, 2020 OB - Admission Exam Physical Exam Vitals: Vital Signs 07/26/20 07:00 Temp 37.1 Pulse 100 Resp 18 B/P (MAP) 118/75 (89) Pulse Ox 97 O2 Delivery Room Air HEENT: NCAT Heart: Rhythm Normal Lungs: Clear Abdomen: Gravid Extremities: Normal Reflexes: Normal Membranes: Intact Heart Rate: 130's Accelerations: Accelerations Present Decelerations: No Decelerations Short Term Variability: Present Nursing Home Variability: Average (6-25) Contractions on Admission: >10 Minutes Apart Intensity: Mild Labs Laboratory Tests Test 07/26/20 06:40 Range/Units White Blood Count 10.1 4.3-11.0 10^3/uL Red Blood Count 4.22 3.80-5.11 10^6/uL Hemoglobin 11.8 11.5-16.0 g/dL Hematocrit 36 35-52 % Mean Corpuscular Volume 85 80-99 fL Mean Corpuscular Hemoglobin 28 25-34 pg Mean Corpuscular Hemoglobin Concent 33 32-36 g/dL Red Cell Distribution Width 14.3 10.0-14.5 % Platelet Count 215 130-400 10^3/uL Mean Platelet Volume 10.2 9.0-12.2 fL Immature Granulocyte % (Auto) 0 % Neutrophils (%) (Auto) 78 H 42-75 % Lymphocytes (%) (Auto) 14 12-44 % Monocytes (%) (Auto) 7 0-12 % Eosinophils (%) (Auto) 1 0-10 % Basophils (%) (Auto) 0 0-10 % Neutrophils # (Auto) 7.8 1.8-7.8 10^3/uL Lymphocytes # (Auto) 1.4 1.0-4.0 10^3/uL Monocytes # (Auto) 0.7 0.0-1.0 10^3/uL Eosinophils # (Auto) 0.1 0.0-0.3 10^3/uL Basophils # (Auto) 0.0 0.0-0.1 10^3/uL Immature Granulocyte # (Auto) 0.0 0.0-0.1 10^3/uL OB - Assessment/Plan/Diagnosis Assessment Assessment: section Admission Dx 29 yo @ 39 weeks Previous Admission Status: Inpatient Order (span 2 midnights) Reason for Inpatient Admission: Repeat Plan Plan: Section HEAVENLY JUAREZ DO Jul 26, 2020 07:11
[2020-07-26] MEDS ORDERED: MEASLES,MUMPS,RUBELLA 1 EA INJ SC SCH (07:15)
[2020-07-26] MEDS ORDERED: ONDANSETRON 4 MG/2 ML (SDV) Z0FRAN IVP PRN ×2 (07:15→11:45)
[2020-07-26] MEDS ORDERED: TETANUS,DIPTH,PERTUSS P/F (BOOSTRIX) 0.5 ML VIAL IM SCH (07:15)
--- NOTE | 2020-07-26 07:24 | Discharge Inst-Women's Service ---
Discharge Inst-Women's Serv Depart Medication/Instructions New, Converted or Re-Newed RX: RX on Chart Final Diagnosis POD 2 RLTCS Problems Reviewed?: Yes Consults/Follow Up Additional Follow Up: Yes Orders/Referrals Dr. Mcnulty in 7-10 days and in 6 weeks Activity Activity: Activity as Tolerated Driving Instructions: No Driving for 1 Week NO SMOKING: NO SMOKING Nothing Inside Vagina: No Douching, No [place], No Tampons Diet Discharge Diet: No Restrictions Symptoms to Report to : Bleeding Excessive, Pain Increased, Fever Over 101 Degrees F, Vaginal Bleeding Increase, Questions/Concerns For Any Problems or Questions: Contact Your Physician Skin/Wound Care Infection Signs and Symptoms: Increased Redness, Foul Odor of Wound, Increased Drainage, Skin Itchy or Has a Rash, Increased Swelling, Temperature Above 101 F Operative Area Clean and Dry: Keep Incision Clean/Dry Stitches/[place]/Dermabond: Dermabond, Care of Stitches Bathing Instructions: HEAVENLY Gonzalez DO Jul 26, 2020 07:24
[2020-07-26] MEDS ORDERED: DCS100C PO (07:27)
[2020-07-26] MEDS ORDERED: IBUP-844 PO (07:27)
[2020-07-26] MEDS ORDERED: ACHD5005 PO (07:27)
[2020-07-26] MEDS ORDERED: PHENYLEPHRINE 100 MCG/ML 10 ML (ANESTHESIA) SYR ONE (07:30)
[2020-07-26] MEDS ORDERED: ONDANSETRON 4 MG/2 ML (SDV) Z0FRAN ONE (07:41)
[2020-07-26] MEDS: KETOROLAC 30 MG/ML VIAL IV SCH ×3 (08:55→21:17)
--- NOTE | 2020-07-26 09:01 | OPERATIVE REPORT ---
DATE OF SERVICE: PREOPERATIVE DIAGNOSES: 1. A 29-year-old G2, P1 at 39 weeks gestation. 2. Previous section. POSTOPERATIVE DIAGNOSES: 1. A 29-year-old G2, P1 at 39 weeks gestation. 2. Previous section. PROCEDURE: Repeat low transverse section. SURGEON: Vasu Mcnulty DO [facility] CHIEF: Jaclyn Mcgovern DNP, who was necessary for manipulation and retraction throughout the procedure. ANESTHESIA: Spinal. ESTIMATED BLOOD LOSS: 350 mL. URINE OUTPUT: 35 mL clear at the end of the procedure. FLUIDS: 1000 mL lactated Ringer's solution. FINDINGS: A live female infant weighing 6 pounds 9 ounces, Apgars of 8 and 9. Grossly normal appearing uterus, bilateral fallopian tubes and ovaries. SPECIMEN SENT: None. INDICATIONS FOR PROCEDURE: This 29-year-old female is a patient who had sought care in my office. Her care was uncomplicated except for we planned for repeat . We had discussed this throughout her care. We reviewed the risk of . After all of her questions were answered in the preoperative area, consent was obtained, and the patient was taken to the operating room. OPERATIVE REPORT IN DETAIL: Once in the operating room, spinal analgesia was found to be adequate, placed in supine position with leftward tilt, prepped and draped in normal sterile fashion. Timeout was performed. Anesthesia was tested. I then performed a Pfannenstiel skin incision through the previous existing scar using knife and carried down to underlying fascia using Bovie cautery. Fascial incision extended laterally using Bovie cautery. Superior aspect of fascial incision was then grasped with Guadalupe clamps, tented up and dissected off the underlying rectus muscles. The inferior aspect of the fascial incision was then grasped with Guadalupe clamps, tented up and dissected off the underlying rectus muscles. Rectus muscles were then dissected down the midline using Valadez scissors, which exposed the peritoneum, which I entered bluntly and extended using blunt traction. An Matt ring retractor was placed in the peritoneal incision, which offers excellent lateral sidewall retraction. I then identified the lower uterine segment, which was found to be thinned out and make a low transverse incision to the vesicouterine peritoneum and bluntly dissect this off the lower uterine segment, creating a bladder flap. I then proceeded with myotomy until membranes were visualized, at which point I extended the uterine incision laterally and superiorly using bandage scissors. Amniotomy was performed using Allis clamp. Clear fluid was noted. With gentle fundal pressure, the 's head is elevated up to the incision were delivered through the incision. The nares and oropharynx were bulb suctioned. Anterior and posterior shoulders were delivered after a nuchal cord was reduced x1. The remainder of the infant was then brought out onto the operative field where the cord was duly clamped and cut, and was handed off to waiting nurses in attendance. Cord blood was collected. Three-vessel cord with intact placenta was delivered spontaneously thereafter. IV Pitocin was initiated to facilitate uterine contraction. Uterine fundus became firmer with bimanual massage. Uterus was exteriorized and cleared of all endometrial clots and debris. I then proceeded with closing the uterine incision using 0 Vicryl suture in running locked fashion. Second layer of imbricating 0 Monocryl was placed. Excellent hemostasis was noted after doing this. I then placed the uterus back in the pelvis and copiously irrigated the pelvis using normal saline. There was no active bleeding noted from any of my dissection planes. I placed Interceed antiadhesive over my low transverse incision and then removed the Matt ring retractor. I began by closing the peritoneum using 3-0 Vicryl suture in running fashion. The rectus muscle reapproximated using 3-0 Vicryl suture in interrupted fashion. The fascia was reapproximated using 0 Vicryl suture in running fashion. Subcutaneous tissue was reapproximated using 3-0 plain interrupted subcutaneous stitch and skin reapproximated using 4-0 Monocryl running subcuticular. Dermabond was applied to incision and sterile dressing with adhesive white tape. Two grams of Ancef were given preoperatively for infection prophylaxis. The patient tolerated the procedure well and sent to recovery in stable condition. Lap and sponge counts were correct at the end of the procedure. Instrument counts correct as well. Job ID: [id number] DocumentID: [id number] Dictated Date: 07/26/2020 08:40:24 Rebar Worker Date: 07/26/2020 09:00:52 Dictated By: DO REGINO ROSA
[2020-07-26] MEDS ORDERED: HYDROmorphone 2 MG/ML VIAL (DILAUDID) IV ONE (11:45)
[2020-07-26] MEDS ORDERED: CATHETER FLUSH 10 ML SYR IV SCH (14:00)
[2020-07-26] MEDS: HYDROcodone/APAP 5 MG/325 MG (LORTAB) TAB PO PRN (14:42)
[2020-07-26] MEDS: DOCUSATE SODIUM 100 MG (COLACE) CAP PO SCH (21:17)
[2020-07-27 02:40] VITALS: BP 124/72
[2020-07-27] MEDS: KETOROLAC 30 MG/ML VIAL IV SCH (02:41)
[2020-07-27 05:20] VITALS: BP 117/63
[2020-07-27 05:52] LABS: BASOPHILS % (AUTO) 0 % (0-10); EOSINOPHILS # (AUTO) 0.1 10^3/uL (0.0-0.3); EOSINOPHILS % (AUTO) 1 % (0-10); HEMATOCRIT 33 % (35-52); HEMOGLOBIN 10.5 g/dL (11.5-16.0); LYMPHOCYTES # (AUTO) 1.7 10^3/uL (1.0-4.0); LYMPHOCYTES % (AUTO) 16 % (12-44); MEAN CORPUSCULAR HEMOGLOBIN 27 pg (25-34); MEAN CORPUSCULAR HGB CONC 32 g/dL (32-36); MEAN CORPUSCULAR VOLUME 85 fL (80-99); MEAN PLATELET VOLUME 10.2 fL (9.0-12.2); MONOCYTES # (AUTO) 0.7 10^3/uL (0.0-1.0); MONOCYTES % (AUTO) 7 % (0-12); NEUTROPHILS # (AUTO) 7.6 10^3/uL (1.8-7.8); NEUTROPHILS % (AUTO) 75 % (42-75); PLATELET COUNT 220 10^3/uL (130-400); WHITE BLOOD COUNT 10.2 10^3/uL (4.3-11.0)
--- NOTE | 2020-07-27 07:16 | Postpartum Progress Note ---
Note Note Day # 1 Subjective: Patient is without complaints. Ambulating, voiding. Tolerating a regular diet without nausea or vomiting. Normal lochia. Pain is well controlled with oral pain medications. Objective: Physical Exam: General - Alert and oriented, no apparent distress Abdomen - Soft, appropriately tender to palpation, non-distended, fundus firm at umbilicus Extremities - no edema, negative Teddy's bilaterally Incision- c/d/i Assessment: POD 1 RLTCS Acute blood loss anemia Plan: Routine care. Encourage breast feeding. Encourage ambulation. Ferrous sulfate supplementation. Plan for discharge tomorrow Vitals - Labs Vital Signs - I&O Vital Signs Date Time Temp Pulse Resp B/P (MAP) Pulse Ox O2 Delivery O2 Flow Rate FiO2 07/27/20 05:20 36.8 87 16 117/63 (81) 96 Room Air 07/27/20 02:40 37.0 91 16 124/72 (89) 96 Room Air 07/26/20 21:30 37.4 84 16 113/69 (84) 98 Room Air 07/26/20 17:46 37.2 82 16 113/59 (77) 96 Room Air 07/26/20 13:30 37.6 96 16 110/56 (74) 96 Room Air 07/26/20 09:29 36.4 16 111/78 (89) 98 Room Air 07/26/20 09:29 Room Air 07/26/20 09:15 36.4 16 127/71 (89) 98 Room Air 07/26/20 09:15 Room Air 07/26/20 09:00 36.4 16 119/88 (98) 99 Room Air 07/26/20 09:00 Room Air 07/26/20 08:45 Room Air 07/26/20 08:45 36.4 17 119/69 (86) 99 Room Air 07/26/20 08:30 36.3 16 105/70 (82) 98 Room Air 07/26/20 08:30 Room Air I & O 07/27/20 07:00 Intake Total 1610 ml Output Total 2035 ml Balance -425 ml Labs Laboratory Tests 07/27/20 05:33: White Blood Count 10.2, Red Blood Count 3.84, Hemoglobin 10.5L, Hematocrit 33L, Mean Corpuscular Volume 85, Mean Corpuscular Hemoglobin 27, Mean Corpuscular Hemoglobin Concent 32, Red Cell Distribution Width 14.6H, Platelet Count 220, Mean Platelet Volume 10.2, Immature Granulocyte % (Auto) 0, Neutrophils (%) (Auto) 75, Lymphocytes (%) (Auto) 16, Monocytes (%) (Auto) 7, Eosinophils (%) (Auto) 1, Basophils (%) (Auto) 0, Neutrophils # (Auto) 7.6, Lymphocytes # (Auto) 1.7, Monocytes # (Auto) 0.7, Eosinophils # (Auto) 0.1, Basophils # (Auto) 0.0, Immature Granulocyte # (Auto) 0.0 HEAVENLY JUAREZ DO Jul 27, 2020 07:16
--- NOTE | 2020-07-27 07:55 | Anesthesia-Regional Post-Op ---
Regional Patient Condition Mental Status: Alert, Oriented x3 Circulation: Same as Pre-Op Headache: Absent Sensation: Full Recovery Motor Block: Absent Post Op Complications Complications None Follow Up Care/Instructions Patient Instructions None needed. Anesthesia/Patient Condition Patient is doing well, no complaints, stable vital signs, no apparent adverse anesthesia problems. No complications reported per nursing. LASHAUN REY CRNA Jul 27, 2020 07:55
[2020-07-27] MEDS: IBUPROFEN 600 MG (MOTRIN) TAB PO SCH ×3 (08:43→21:10)
[2020-07-27] MEDS: DOCUSATE SODIUM 100 MG (COLACE) CAP PO SCH ×2 (08:44→21:10)
[2020-07-27 09:00] VITALS: BP 124/69
--- NOTE | 2020-07-27 09:00 | NUR ---
A.M. ASSESSMENT COMPLETED. VSS. CARING FOR IN ROOM. GOOD INTERACTION NOTED.
[2020-07-27 12:45] VITALS: BP 110/57
[2020-07-27] MEDS: HYDROcodone/APAP 5 MG/325 MG (LORTAB) TAB PO PRN (13:49)
--- NOTE | 2020-07-27 13:49 | NUR ---
Pt c/o pain, meds given per order see mar.
--- NOTE | 2020-07-27 14:00 | NUR ---
AMBULATING IN THE [place] PUSHING IN CRIB. MOVES WELL.
--- NOTE | 2020-07-27 16:00 | NUR ---
VOIDING WELL. TAKING P.O. FLUIDS WELL. SPOUSE AT BEDSIDE. CARING FOR IN ROOM.
[2020-07-27 17:00] VITALS: BP 121/76
--- NOTE | 2020-07-27 18:15 | NUR ---
EATING DINNER. OFFERS NO COMPLAINTS.
[2020-07-27 21:33] VITALS: BP 116/77
[2020-07-28] MEDS: IBUPROFEN 600 MG (MOTRIN) TAB PO SCH ×2 (02:45→09:57)
[2020-07-28 02:46] VITALS: BP 112/66
--- NOTE | 2020-07-28 08:13 | Postpartum Progress Note ---
Note Note Day # 2 Subjective: Patient is without complaints. Ambulating, voiding. Tolerating a regular diet without nausea or vomiting. Normal lochia. Pain is well controlled with oral pain medications. Objective: Physical Exam: General - Alert and oriented, no apparent distress Abdomen - Soft, appropriately tender to palpation, non-distended, fundus firm at umbilicus Extremities - no edema, negative Teddy's bilaterally Incision- c/d/i Assessment: POD 2 RLTCS Plan: Routine care. Encourage breast feeding. Encourage ambulation. Ferrous sulfate supplementation. Plan for discharge today Vitals - Labs Vital Signs - I&O Vital Signs Date Time Temp Pulse Resp B/P (MAP) Pulse Ox O2 Delivery O2 Flow Rate FiO2 07/28/20 02:46 37.0 79 18 112/66 (81) 96 Room Air 07/27/20 21:33 36.8 85 18 116/77 (90) 98 Room Air 07/27/20 17:00 36.5 90 18 121/76 (91) 97 Room Air 07/27/20 12:45 37.2 87 18 110/57 (74) 97 Room Air 07/27/20 09:00 37.2 93 18 124/69 (87) 97 Room Air I & O 07/28/20 07:00 Intake Total 2215 ml Output Total 2650 ml Balance -435 ml Labs Microbiology 07/26/20 MRSA Screen - Final, Complete MRSA not isolated HEAVENLY JUAREZ DO Jul 28, 2020 08:13
[2020-07-28 09:30] VITALS: BP 128/77
--- NOTE | 2020-07-28 09:30 | NUR ---
A.M. ASSESSMENT COMPLETED. VSS. CARING FOR IN ROOM.
[2020-07-28] MEDS: DOCUSATE SODIUM 100 MG (COLACE) CAP PO SCH (09:57)
--- NOTE | 2020-07-28 10:40 | NUR ---
DISCHARGE INSTRUCTIONS REVIEWED WITH COPY TO PT. RXS GIVEN. STATES UNDERSTANDING OF ALL INSTRUCTIONS AND NEED TO F/U SCHEDULED AND NEEDED.
[2020-07-28 11:10] VITALS: BP 128/77
--- NOTE | 2020-07-28 11:10 | NUR ---
DISMISSED VIA W/C FROM [facility] WITH INFANT TO FAMILY CAR IN STABLE CONDITION ACC BY SPOUSE AND WS STAFF.
== END 2020-07-28 11:10 | disposition home or self-care (01) | DRG 787 ==
LOC: LDRP 06:06
PROVIDERS: ADMIT Obstetrics & Gynecology; ATTEND Obstetrics & Gynecology
PROC: 10D00Z1 Extraction of Products of Conception, Low, Open Approach (ICD-10-PCS; principal; 2020-07-26 07:17)
DX: O34.211 Maternal care for low transverse scar from previous cesarean delivery (principal); D62 Acute posthemorrhagic anemia; O90.81 Anemia of the puerperium; O69.81X0 Labor and delivery complicated by cord around neck, without compression, not applicable or unspecified; Z37.0 Single live birth; Z3A.39 39 weeks gestation of pregnancy
CPT/HCPCS: 36415; 85025; 86850; 86900; 86901; 87081